=== PATIENT | female | born 2000 | race Caucasian/White ===

== ENCOUNTER 2024-07-29 19:35 | Observation (INO) | payer OTHER ==
[~2024-07-29] VITALS: Ht 157.5 cm; Wt 66.4 kg
[2024-07-29 20:43] LABS: MEAN CORPUSCULAR HEMOGLOBIN 14.7 pg (27.0-33.0); MEAN CORPUSCULAR HGB CONC 25.4 g/dl (32.0-36.5); MEAN CORPUSCULAR VOLUME 57.8 fl (80.0-96.0); PLATELET COUNT, AUTOMATED 303 10^3/uL (150-450); RED BLOOD COUNT 3.06 10^6/uL (4.00-5.40); WHITE BLOOD COUNT 8.5 10^3/uL (4.0-10.0)
[2024-07-29 20:44] LABS: HEMATOCRIT 17.7 % (36.0-47.0); HEMOGLOBIN 4.5 g/dl (12.0-15.5)
[2024-07-29 20:56] LABS: INR 1.19; PARTIAL THROMBOPLASTIN TIME 26.8 SECONDS (24.8-34.2); PROTHROMBIN TIME 15.4 SECONDS (12.5-14.5)
[2024-07-29 21:13] LABS: BLOOD UREA NITROGEN 6 MG/DL (9-23); CALCIUM LEVEL 8.5 MG/DL (8.5-10.1); CARBON DIOXIDE LEVEL 24 MMOL/L (20-31); CHLORIDE LEVEL 105 MMOL/L (98-107); CREATININE FOR GFR 0.49 MG/DL (0.55-1.30); GLOMERULAR FILTRATION RATE > 90.0 (>60); GLUCOSE, FASTING 95 MG/DL (60-100); IRON (FE) 7 UG/DL (50-170); SODIUM LEVEL 137 MMOL/L (136-145)
[2024-07-29 21:28] LABS: HCG, SERUM QUANTITATIVE 14792.7 MIU/ML (<4.2)
[2024-07-29] MEDS: POTASSIUM CHLORIDE 10% LIQ 20MEQ/15ML UDC PO ONE ×2 (22:15)
[2024-07-30] VITALS (19 sets, daily range): BP systolic 85–110; BP diastolic 47–65; TEMP 97.3–101.2; O2SAT 97–100
[2024-07-30] MEDS: ACETAMINOPHEN *IV* 1,000 MG in IV 1 EA IV ONE (02:07)
[2024-07-30 02:26] LABS: TOTAL IRON BINDING CAPACITY 357 UG/DL (250-425)
[2024-07-30 02:29] LABS: FERRITIN 2.4 NG/ML (7.3-270.7)
[2024-07-30 03:18] LABS: PROCALCITONIN 0.13 ng/ml
[2024-07-30 06:58] LABS: APPEARANCE, URINE HAZY (CLEAR); BACTERIA, URINE AUTO NEGATIVE (NEGATIVE); BILIRUBIN, URINE AUTO NEGATIVE (NEGATIVE); BLOOD, URINE BLOOD 2+ (NEGATIVE); COLOR, URINE YELLOW (YELLOW); GLUCOSE, URINE (UA) AUTO NEGATIVE (NEGATIVE); KETONE, URINE AUTO TRACE mg/dL (NEGATIVE); LEUKOCYTE ESTERASE, URINE AUTO TRACE (NEGATIVE); MUCUS, URINE SMALL (NEGATIVE); NITRITE, URINE AUTO NEGATIVE (NEGATIVE); PROTEIN, URINE AUTO NEGATIVE (NEGATIVE); RBC, URINE AUTO 1 /HPF (0-3); SPECIFIC GRAVITY URINE AUTO 1.021 (1.002-1.035); SQUAMOUS EPITHELIAL CELL UR AU 3 /HPF (0-6); UROBILINOGEN, URINE AUTO 0.2 mg/dL (0.0-2.0); WBC, URINE AUTO 15 /HPF (0-3)
[2024-07-30 08:10] LABS: IRON (FE) 137 UG/DL (50-170); MAGNESIUM LEVEL 1.9 MG/DL (1.8-2.4); PERCENT SATURATION 35.9 % (13.2-45.0); TOTAL IRON BINDING CAPACITY 382 UG/DL (250-425)
[2024-07-30 08:13] LABS: FERRITIN 9.2 NG/ML (7.3-270.7)
[2024-07-30 08:14] LABS: VITAMIN B12 LEVEL 1044 PG/ML (211-911)
[2024-07-30] MEDS ORDERED: HOME MED LIST COMPLETE! XX SCH (09:00)
[2024-07-30] MEDS ORDERED: NITROFURANTOIN (MACROBID) 100 MG CAP PO SCH (09:00)
[2024-07-30 09:12] LABS: BASO % 0.4 % (0.0-1.0); EOS # 0.1 10^3/uL (0.0-0.5); EOS % 0.8 % (0.0-3.0); HEMATOCRIT 32.6 % (36.0-47.0); LYMPH # 0.5 10^3/uL (1.5-5.0); LYMPH % 5.5 % (24.0-44.0); MEAN CORPUSCULAR HEMOGLOBIN 20.2 pg (27.0-33.0); MEAN CORPUSCULAR HGB CONC 29.4 g/dl (32.0-36.5); MEAN CORPUSCULAR VOLUME 68.6 fl (80.0-96.0); MONO # 0.7 10^3/uL (0.0-0.8); MONO % 8.6 % (2.0-8.0); NEUTROPHILS # 7.1 10^3/uL (1.5-8.5); NEUTROPHILS % 84.1 % (36.0-66.0); PLATELET COUNT, AUTOMATED 291 10^3/uL (150-450); RED BLOOD COUNT 4.75 10^6/uL (4.00-5.40); WHITE BLOOD COUNT 8.4 10^3/uL (4.0-10.0)
[2024-07-30 09:18] LABS: HEMOGLOBIN 9.6 g/dl (12.0-15.5)
[2024-07-30 10:20] LABS: BLOOD UREA NITROGEN 6 MG/DL (9-23); CALCIUM LEVEL 8.5 MG/DL (8.5-10.1); CARBON DIOXIDE LEVEL 23 MMOL/L (20-31); CHLORIDE LEVEL 105 MMOL/L (98-107); GLOMERULAR FILTRATION RATE > 90.0 (>60); GLUCOSE, FASTING 95 MG/DL (60-100); POTASSIUM SERUM 3.7 MMOL/L (3.5-5.1); SODIUM LEVEL 138 MMOL/L (136-145)
[2024-07-30] MEDS ORDERED: IRON SUCROSE 500 MG in NS 250 ML IV STA (11:18)
[2024-07-30] MEDS: AUGMENTIN 875 MG TAB PO SCH (11:26)
[2024-07-30] MEDS ORDERED: FERR325T3 PO (11:31)
[2024-07-30] MEDS ORDERED: AMOX875T2 PO (11:31)
[2024-07-30 12:10] LABS: HEMATOCRIT 29.1 % (36.0-47.0); HEMOGLOBIN 8.8 g/dl (12.0-15.5)
[2024-07-30] MEDS: IRON SUCROSE 500 MG in NS 250 ML IV ONE (13:57)
[2024-07-30] MEDS: ACETAMINOPHEN 325 MG TAB PO PRN (14:56)
[2024-07-30] MEDS: cefTRIAXone SOD 2 GM in DEXTROSE 5% (D5W) ADV/MINI-BAG 50 ML IV SCH (18:30)
[2024-07-30 18:43] LABS: HEPATITIS B SURFACE ANTIGEN NEGATIVE (NEGATIVE)
[2024-07-30 18:56] LABS: HIV 1&2 SCREEN NEGATIVE (NEGATIVE)
[2024-07-30 19:03] LABS: HEPATITIS C VIRUS ABY INDEX 0.06 INDEX (<0.8)
[2024-07-31 04:39] VITALS: BP 102/64; TEMP 98.2; O2SAT 96
[2024-07-31 06:26] LABS: BASO % 0.7 % (0.0-1.0); EOS # 0.3 10^3/uL (0.0-0.5); HEMATOCRIT 30.3 % (36.0-47.0); HEMOGLOBIN 8.7 g/dl (12.0-15.5); LYMPH # 0.8 10^3/uL (1.5-5.0); LYMPH % 15.4 % (24.0-44.0); MEAN CORPUSCULAR HEMOGLOBIN 19.9 pg (27.0-33.0); MEAN CORPUSCULAR HGB CONC 28.7 g/dl (32.0-36.5); MEAN CORPUSCULAR VOLUME 69.3 fl (80.0-96.0); MONO # 0.5 10^3/uL (0.0-0.8); MONO % 8.3 % (2.0-8.0); NEUTROPHILS # 3.8 10^3/uL (1.5-8.5); PLATELET COUNT, AUTOMATED 252 10^3/uL (150-450); RED BLOOD COUNT 4.37 10^6/uL (4.00-5.40); WHITE BLOOD COUNT 5.5 10^3/uL (4.0-10.0)
[2024-07-31 06:43] LABS: BLOOD UREA NITROGEN 6 MG/DL (9-23); CALCIUM LEVEL 8.3 MG/DL (8.5-10.1); CARBON DIOXIDE LEVEL 24 MMOL/L (20-31); CHLORIDE LEVEL 105 MMOL/L (98-107); CREATININE FOR GFR 0.47 MG/DL (0.55-1.30); GLOMERULAR FILTRATION RATE > 90.0 (>60); GLUCOSE, FASTING 87 MG/DL (60-100); POTASSIUM SERUM 3.2 MMOL/L (3.5-5.1); SODIUM LEVEL 139 MMOL/L (136-145)
[2024-07-31] MEDS: POTASSIUM CHLORIDE 10MEQ SR TABLET PO STA (07:58)
[2024-07-31 08:00] VITALS: BP 109/65; TEMP 97.7; O2SAT 95
[2024-08-01] MEDS ORDERED: ASPI-424 PO (21:43)
[2024-08-02 18:52] LABS: HEMOGLOBINOPATHY EVAL HCT 32.6 % (35.0-45.0); HEMOGLOBINOPATHY EVAL HGB 9.1 g/dL (11.7-15.5); HEMOGLOBINOPATHY EVAL MCH 20.2 pg (27.0-33.0); HEMOGLOBINOPATHY EVAL MCV 72.4 fL (80.0-100.0)
[2024-08-03 00:13] LABS: HEPATITIS B CORE ANTIBODY IGG NON-REACTIVE (NON-REACTIVE)
[2024-08-03 03:07] LABS: HEPATITIS B SURF AB QUANT < 5 mIU/mL (> OR = 10)
[2024-08-03 13:09] LABS: TRANSFERRIN 345 mg/dL (188-341)
[2024-08-04 17:07] LABS: PARVOVIRUS B19 QUANT PCR Negative copies/mL (Negative)
== END 2024-07-31 11:59 | disposition home or self-care (01) ==
LOC: M ED 19:35 → M ED INP 19:36 → M MSPAV 07-30 02:36
PROVIDERS: ADMIT Family Medicine; ATTEND Internal Medicine
DX: O99.011 Anemia complicating pregnancy, first trimester (principal); D50.8 Other iron deficiency anemias; O23.41 Unspecified infection of urinary tract in pregnancy, first trimester; R82.81 Pyuria; R50.9 Fever, unspecified; O99.281 Endocrine, nutritional and metabolic diseases complicating pregnancy, first trimester; E87.6 Hypokalemia; R19.7 Diarrhea, unspecified; Z3A.01 Less than 8 weeks gestation of pregnancy; Z86.2 Personal history of diseases of the blood and blood-forming organs and certain disorders involving the immune mechanism
CPT/HCPCS: 36415; 36430; 76700; 76801; 80048; 81001; 82607; 82728; 82746; 83020; 83550; 83605; 83735; 84145; 84238; 84466; 84702; 85014; 85018; 85025; 85027; 85046; 85610; 85730; 86317; 86704; 86803; 86850; 86900; 86901; 86920; 87040; 87086; 87340; 87389; 87799; 96365; 96375; 99285; J0131; J0696; J1756; P9016

== ENCOUNTER 2024-08-01 18:02 | Emergency (ER) | payer OTHER ==
[~2024-08-01] VITALS: Ht 157.5 cm; Wt 65.8 kg
[~2024-08-01 18:02] MED LIST: AMOX875T2 PO; FERR325T3 PO
[2024-08-01 18:08] VITALS: TEMP 99.2
[2024-08-01 19:30] LABS: BASO # 0.1 10^3/uL (0.0-0.2); EOS # 0.2 10^3/uL (0.0-0.5); EOS % 4.4 % (0.0-3.0); HEMATOCRIT 33.2 % (36.0-47.0); HEMOGLOBIN 9.7 g/dl (12.0-15.5); LYMPH # 1.4 10^3/uL (1.5-5.0); LYMPH % 27.7 % (24.0-44.0); MEAN CORPUSCULAR HEMOGLOBIN 20.4 pg (27.0-33.0); MEAN CORPUSCULAR HGB CONC 29.2 g/dl (32.0-36.5); MEAN CORPUSCULAR VOLUME 69.9 fl (80.0-96.0); MONO # 0.4 10^3/uL (0.0-0.8); MONO % 7.5 % (2.0-8.0); NEUTROPHILS % 58.6 % (36.0-66.0); PLATELET COUNT, AUTOMATED 303 10^3/uL (150-450); RED BLOOD COUNT 4.75 10^6/uL (4.00-5.40); WHITE BLOOD COUNT 5.2 10^3/uL (4.0-10.0)
[2024-08-01 19:35] LABS: ERYTHROCYTE SEDIMENTATION RATE 41 mm/hr (0-20)
[2024-08-01 19:59] LABS: C REACTIVE PROTEIN QUANTITATIV 4.59 MG/DL (<1.0)
[2024-08-01 20:16] LABS: ALBUMIN 3.2 G/DL (3.2-5.2); ALKALINE PHOSPHATASE 76 U/L (35-104); ALT/SGPT 17 U/L (7.0-40); AST/SGOT 14 U/L (<34); BILIRUBIN,TOTAL 0.5 MG/DL (0.3-1.2); BLOOD UREA NITROGEN 10 MG/DL (9-23); CARBON DIOXIDE LEVEL 26 MMOL/L (20-31); CHLORIDE LEVEL 105 MMOL/L (98-107); CREATININE FOR GFR 0.48 MG/DL (0.55-1.30); GLOMERULAR FILTRATION RATE > 90.0 (>60); GLUCOSE, FASTING 85 MG/DL (60-100); HCG, SERUM QUANTITATIVE 17086.3 MIU/ML (<4.2); POTASSIUM SERUM 3.7 MMOL/L (3.5-5.1); SODIUM LEVEL 140 MMOL/L (136-145)
[2024-08-01] MEDS ORDERED: ASPI-424 PO (21:43)
[2024-08-01 21:48] VITALS: BP 102/62; O2SAT 100
== END 2024-08-01 22:01 | disposition home or self-care (01) ==
LOC: M ED 18:02
DX: I82.612 Acute embolism and thrombosis of superficial veins of left upper extremity (principal); Z3A.00 Weeks of gestation of pregnancy not specified; Z79.1 Long term (current) use of non-steroidal anti-inflammatories (NSAID); Z79.2 Long term (current) use of antibiotics

== ENCOUNTER 2024-08-14 19:02 | Emergency (ER) | payer OTHER ==
[~2024-08-14] VITALS: Ht 157.5 cm; Wt 63.6 kg
[~2024-08-14 19:02] MED LIST changes: +ASPI-424 PO
[2024-08-14 19:22] VITALS: TEMP 98.9
[2024-08-14 20:29] LABS: BASO # 0.1 10^3/uL (0.0-0.2); BASO % 1.3 % (0.0-1.0); EOS # 0.2 10^3/uL (0.0-0.5); EOS % 3.8 % (0.0-3.0); HEMATOCRIT 36.5 % (36.0-47.0); HEMOGLOBIN 10.8 g/dl (12.0-15.5); LYMPH # 0.9 10^3/uL (1.5-5.0); LYMPH % 23.4 % (24.0-44.0); MEAN CORPUSCULAR HEMOGLOBIN 22.3 pg (27.0-33.0); MEAN CORPUSCULAR HGB CONC 29.6 g/dl (32.0-36.5); MEAN CORPUSCULAR VOLUME 75.3 fl (80.0-96.0); MONO # 0.3 10^3/uL (0.0-0.8); MONO % 7.1 % (2.0-8.0); NEUTROPHILS # 2.6 10^3/uL (1.5-8.5); NEUTROPHILS % 64.1 % (36.0-66.0); PLATELET COUNT, AUTOMATED 378 10^3/uL (150-450); RED BLOOD COUNT 4.85 10^6/uL (4.00-5.40)
[2024-08-14 20:45] LABS: KETONE, URINE AUTO RFX NEGATIVE (NEGATIVE); MUCUS, URINE RFX LARGE (NEGATIVE); NITRITE, URINE AUTO RFX NEGATIVE (NEGATIVE); RBC, URINE AUTO RFX 27 /HPF (0-3); SQUAM EPITHELIAL CELL UR AURFX 2 /HPF (0-6)
[2024-08-14 20:48] LABS: LEUKOCYTE ESTERASE UR AUTO RFX 1+ (NEGATIVE); WBC, URINE AUTO RFX 25 /HPF (0-3)
[2024-08-14 20:57] LABS: PLATELET ESTIMATE NORMAL (NORMAL)
[2024-08-14 20:58] LABS: ANISOCYTOSIS 2+
[2024-08-14 20:59] LABS: MICROCYTOSIS 2+
[2024-08-14 21:00] LABS: TEAR DROP CELLS 1+
[2024-08-14 21:04] LABS: BLOOD UREA NITROGEN 7 MG/DL (9-23); CARBON DIOXIDE LEVEL 25 MMOL/L (20-31); CHLORIDE LEVEL 104 MMOL/L (98-107); CREATININE FOR GFR 0.51 MG/DL (0.55-1.30); GLOMERULAR FILTRATION RATE > 90.0 (>60); GLUCOSE, FASTING 88 MG/DL (60-100); POTASSIUM SERUM 4.1 MMOL/L (3.5-5.1); SODIUM LEVEL 141 MMOL/L (136-145)
[2024-08-14 21:16] LABS: HCG, SERUM QUANTITATIVE 18050.1 MIU/ML (<4.2)
[2024-08-15 03:12] VITALS: BP 121/69; O2SAT 97
[2024-08-15] MEDS: OXYCODONE/APAP 5MG/325MG(HOME DOSE PACK) PO ONE (03:38)
== END 2024-08-15 03:53 | disposition home or self-care (01) ==
LOC: M ED 19:02
DX: O03.4 Incomplete spontaneous abortion without complication (principal); Z3A.01 Less than 8 weeks gestation of pregnancy; D50.9 Iron deficiency anemia, unspecified

== ENCOUNTER → 2024-08-24 | Outpatient (CLI) | payer OTHER | LOC: M RAD 11:08 | PROVIDERS: ATTEND Nurse Practitioner Adult Health | DX: O22.20 Superficial thrombophlebitis in pregnancy, unspecified trimester (principal); Z3A.00 Weeks of gestation of pregnancy not specified; I82.612 Acute embolism and thrombosis of superficial veins of left upper extremity ==